=== PATIENT | male | born 1995 | race Two or more races ===

== ENCOUNTER 2019-04-15 12:26 | Emergency (ER) | payer OTHER ==
[~2019-04-15] VITALS: Ht 167.6 cm; Wt 60.0 kg
--- NOTE | 2019-04-15 12:40 | NUR ---
MD IS AT THE BEDSIDE TO ASSESS
--- NOTE | 2019-04-15 13:02 | NUR ---
roselyn (kavita) is assuming care of this pt at this time. sbar report was exchanged at the bedside.
[2019-04-15] MEDS ORDERED: KETOROLAC 30 MG/1 ML ONE (13:26)
[2019-04-15 13:27] LABS: MICROSCOPIC INDICATED
[2019-04-15 13:28] LABS: CULTURE INDICATED? YES
--- NOTE | 2019-04-15 13:29 | NUR ---
PT MED NOTED FOR PAIN 09/08. PT TO US WITH TECH TRANSPORT
[2019-04-15] MEDS ORDERED: KETOROLAC 30 MG/1 ML IM ONE (13:30)
[2019-04-15] MEDS ORDERED: CEFTRIAXONE 1,000 MG IM ONE (14:00)
[2019-04-15] MEDS ORDERED: CEFTRIAXONE 250 MG ONE (14:03)
[2019-04-15 14:33] VITALS: BP 118/63
--- NOTE | 2019-04-15 14:35 | NUR ---
Patient/Caregiver given discharge instructions and they have confirmed that they understand the instructions. Patient ambulatory with steady gait.
== END 2019-04-15 14:46 | disposition home or self-care (01) ==
LOC: ED 14:25
DX: N45.1 Epididymitis (principal); N34.1 Nonspecific urethritis; F17.200 Nicotine dependence, unspecified, uncomplicated
CPT/HCPCS: 76870; 81001; 87086; 87491; 87591; 96372; 99284; J0696; J1885